=== PATIENT | male | born 1940 | race Caucasian/White ===

== ENCOUNTER 2017-02-01 12:18 | Outpatient (CLI) | payer OTHER, BC ==
[~2017-02-01 12:18] MED LIST: ASPI81TA2 PO; DOCU-19 PO; GLIP5TAB13 PO; LEVE500T13 PO; LEVO50TA77 PO; LIP40 PO; METO25TA6 PO; NOR10 PO
[2017-02-01 12:46] LABS: BILIRUBIN,URINE NEGATIVE (NEGATIVE); CLARITY/URINE CLEAR (CLEAR); COLOR,URINE YELLOW (YELLOW); GLUCOSE,URINE NEGATIVE (NEGATIVE); KETONES,URINE NEGATIVE (NEGATIVE); LEUKOCYTE ESTERASE ,URINE NEGATIVE (NEGATIVE); NITRITE, URINE NEGATIVE (NEGATIVE); PROTEIN URINE NEGATIVE (NEGATIVE); UROBILINOGEN,URINE 0.2 (0.2-1.0)
[2017-02-01 12:51] LABS: BLOOD, URINE TRACE (NEGATIVE)
[2017-02-01 13:00] LABS: BACTERIA,URINE RARE /HPF (None Seen); RBC,URINE 0-3 /HPF (0-3); WBC,URINE 0-3 /HPF (0-3)
== END 2017-02-01 19:17 | disposition home or self-care (01) ==
LOC: SLB 12:18
PROVIDERS: ATTEND Internal Medicine
DX: N39.0 Urinary tract infection, site not specified (principal)
CPT/HCPCS: 81000-TC

== ENCOUNTER 2017-08-30 11:21 | Outpatient (CLI) | payer OTHER, BC | END 2017-08-30 19:40 | disposition home or self-care (01) | LOC: SRD 11:21 | PROVIDERS: ATTEND Internal Medicine | DX: J18.9 Pneumonia, unspecified organism (principal); R05 Cough | CPT/HCPCS: 71046-TC ==

== ENCOUNTER 2018-09-21 09:23 | Inpatient (IN) | payer BC, OTHER ==
[~2018-09-21] VITALS: Ht 165.1 cm; Wt 72.6 kg
[~2018-09-21 09:23] MED LIST changes: +ASPI-1155 PO; -ASPI81TA2 PO; -LEVE500T13 PO; +LEVE500T9 PO; -LEVO50TA77 PO; +SYN50 PO
[2018-09-21 09:25] VITALS: BP_SYST 129
[2018-09-21] MEDS ORDERED: NACL 0.9% 1,000 ML IV ONE (11:15)
[2018-09-21 12:25] LABS: BASOPHILS # (AUTO) 0.1 K/uL (0.0-0.2); BASOPHILS % (AUTO) 0.7 % (0.0-2.0); EOSINOPHILS # (AUTO) 0.1 K/uL (0.0-0.4); EOSINOPHILS % (AUTO) 0.7 % (0.0-4.0); MONOCYTES # (AUTO) 0.7 K/uL (0.0-1.0)
[2018-09-21 12:32] LABS: HEMOGLOBIN 14.7 g/dL (14.0-18.0); LYMPHOCYTES # (AUTO) 1.2 K/uL (1.0-5.5); LYMPHOCYTES % (AUTO) 13.5 % (20.5-51.5); MEAN CORPUSCULAR HEMOGLOBIN 22 pg (27-31); MEAN CORPUSCULAR HGB CONC 31 % (32-36); MEAN CORPUSCULAR VOLUME 71 fL (79.0-98.0); NEUTROPHILS # (AUTO) 7.1 K/uL (1.8-7.7); NEUTROPHILS % (AUTO) 77.1 % (40.0-70.0); PLATELET COUNT (AUTO) 241 K/uL (130-430); RED BLOOD CELL COUNT(AUTO) 6.61 MIL/uL (4.2-6.2); RED CELL DISTRIBUTION WIDTH 14.2 % (9.0-15.0); WHITE BLOOD COUNT (AUTO) 9.2 K/uL (4.8-10.8)
[2018-09-21 12:33] LABS: ANION GAP 8 (5-15); CHLORIDE 105 mmol/L (98-107); CREATININE 1.24 mg/dL (0.55-1.30); GLUCOSE 124 mg/dL (70-99); SODIUM SERUM 141 mmol/L (136-145); UREA NITROGEN, BLOOD 19 mg/dL (8-21)
[2018-09-21] MEDS ORDERED: POTASSIUM CHLORIDE 20 MEQ TAB.PRT.SR PO ONE ×2 (12:45→16:00)
[2018-09-21 12:48] LABS: ALANINE AMINOTRANSFERASE 34 U/L (12-78); ALBUMIN 3.7 g/dL (3.4-4.8); ASPARTATE AMINOTRANSFERASE 21 U/L (10-37); FREE T4 (FREE THYROXINE) 1.1 ng/dL (0.6-1.6); THYROID STIMULATING HORMONE 0.97 uIu/mL (0.34-4.82); TOTAL BILIRUBIN 0.4 mg/dL (0.0-1.0)
[2018-09-21 13:21] LABS: POTASSIUM 2.9 mmol/L (3.5-5.1)
[2018-09-21 14:04] VITALS: BP_SYST 162
[2018-09-21 14:26] VITALS: BP_SYST 144
[2018-09-21] MEDS ORDERED: VITD2000 PO (14:44)
[2018-09-21] MEDS ORDERED: LAM25 PO (14:44)
[2018-09-21] MEDS ORDERED: LOSA100T3 PO (14:44)
[2018-09-21] MEDS ORDERED: PYRI50CA PO (14:44)
[2018-09-21] MEDS ORDERED: HYDR-4038 PO (14:44)
[2018-09-21] MEDS ORDERED: ASCO500T20 PO (14:44)
[2018-09-21] MEDS ORDERED: NIFE60TA83 PO (14:44)
[2018-09-21] MEDS ORDERED: hydrALAZINE HCL 25 MG TABLET PO PRN (15:30)
[2018-09-21] MEDS ORDERED: ASCORBIC ACID 500 MG TABLET PO ONE (15:45)
[2018-09-21] MEDS ORDERED: INSULIN REGULAR, HUMAN 100 UNITS/ML, 10 ML VIAL (novoLIN R) SUBCUT PRN (15:45)
[2018-09-21] MEDS ORDERED: DEXTROSE 50% JECT 50 ML DISP.SYRIN IVP PRN (15:45)
[2018-09-21] MEDS ORDERED: ATORVASTATIN 20 MG TABLET PO ONE (15:45)
[2018-09-21] MEDS ORDERED: CHOLECALCIFEROL (VITAMIN D3) 2,000 UNIT TABLET PO ONE (15:45)
[2018-09-21 16:00] VITALS: BP_SYST 133
[2018-09-21] MEDS ORDERED: METOPROLOL TARTRATE 25 MG TABLET PO ONE (16:00)
[2018-09-21] MEDS ORDERED: LamoTRIgine 25 MG TABLET PO ONE (16:00)
[2018-09-21] MEDS ORDERED: TEMAZEPAM 15 MG CAPSULE PO PRN (16:45)
[2018-09-21] MEDS ORDERED: ASPIRIN 81 MG TAB.CHEW PO ONE (20:15)
[2018-09-21 20:26] VITALS: BP_SYST 153
[2018-09-21] MEDS: POTASSIUM CHLORIDE 20 MEQ TAB.PRT.SR PO SCH (20:29)
[2018-09-21] MEDS: DOCUSATE SODIUM 100 MG CAPSULE PO SCH (20:29)
[2018-09-21] MEDS: levETIRAcetam 500 MG TABLET PO SCH (20:30)
[2018-09-21] MEDS: METOPROLOL TARTRATE 25 MG TABLET PO SCH (20:31)
[2018-09-21] MEDS: ENOXAPARIN SODIUM 80 MG/0.8 ML SYRINGE SUBCUT SCH (20:46)
[2018-09-21] MEDS ORDERED: ENOXAPARIN SODIUM 60 MG/0.6 ML SYRINGE SUBCUT SCH (21:00)
[2018-09-21] MEDS ORDERED: METOPROLOL TARTRATE 12.5 MG PO SCH (21:00)
[2018-09-21 23:51] VITALS: BP_SYST 153
[2018-09-22] MEDS: LEVOTHYROXINE SODIUM 0.05 MG TABLET PO SCH (06:23)
[2018-09-22 07:34] LABS: ANION GAP 12 (5-15); CALCIUM 8.8 mg/dL (8.4-11.0); CHLORIDE 102 mmol/L (98-107); CREATININE 1.04 mg/dL (0.55-1.30); GLUCOSE 123 mg/dL (70-99); POTASSIUM 3.6 mmol/L (3.5-5.1); SODIUM SERUM 139 mmol/L (136-145); UREA NITROGEN, BLOOD 15 mg/dL (8-21)
[2018-09-22 07:38] LABS: BASOPHILS % (AUTO) 0.4 % (0.0-2.0); EOSINOPHILS # (AUTO) 0.1 K/uL (0.0-0.4); EOSINOPHILS % (AUTO) 1.2 % (0.0-4.0); HEMATOCRIT 46.6 % (36-54); HEMOGLOBIN 14.7 g/dL (14.0-18.0); LYMPHOCYTES # (AUTO) 1.7 K/uL (1.0-5.5); LYMPHOCYTES % (AUTO) 19.1 % (20.5-51.5); MEAN CORPUSCULAR HEMOGLOBIN 23 pg (27-31); MEAN CORPUSCULAR HGB CONC 32 % (32-36); MEAN CORPUSCULAR VOLUME 72 fL (79.0-98.0); MONOCYTES # (AUTO) 0.5 K/uL (0.0-1.0); MONOCYTES % (AUTO) 6.2 % (1.7-9.3); NEUTROPHILS # (AUTO) 6.4 K/uL (1.8-7.7); NEUTROPHILS % (AUTO) 73.1 % (40.0-70.0); RED BLOOD CELL COUNT(AUTO) 6.52 MIL/uL (4.2-6.2); RED CELL DISTRIBUTION WIDTH 13.9 % (9.0-15.0); WHITE BLOOD COUNT (AUTO) 8.7 K/uL (4.8-10.8)
[2018-09-22 08:00] VITALS: BP_SYST 154
[2018-09-22] MEDS: ASCORBIC ACID 500 MG TABLET PO SCH (08:26)
[2018-09-22] MEDS: PYRIDOXINE HCL 50 MG TABLET PO SCH (08:26)
[2018-09-22] MEDS: LamoTRIgine 25 MG TABLET PO SCH (08:27)
[2018-09-22] MEDS: ATORVASTATIN 20 MG TABLET PO SCH (08:27)
[2018-09-22] MEDS: POTASSIUM CHLORIDE 20 MEQ TAB.PRT.SR PO SCH ×2 (08:27→20:34)
[2018-09-22] MEDS: NIFEDIPINE 60 MG TABLET.SA (PROCARDIA XL 60 MG) PO SCH (08:28)
[2018-09-22] MEDS: LOSARTAN POTASSIUM 50 MG TABLET (COZAAR) PO SCH (08:28)
[2018-09-22] MEDS: METOPROLOL TARTRATE 25 MG TABLET PO SCH ×2 (08:28→20:35)
[2018-09-22] MEDS: DOCUSATE SODIUM 100 MG CAPSULE PO SCH ×2 (08:28→20:34)
[2018-09-22] MEDS: CHOLECALCIFEROL (VITAMIN D3) 2,000 UNIT TABLET PO SCH (08:29)
[2018-09-22] MEDS: ENOXAPARIN SODIUM 80 MG/0.8 ML SYRINGE SUBCUT SCH ×2 (08:30→20:37)
[2018-09-22 08:43] LABS: PLATELET COUNT (AUTO) 229 K/uL (130-430)
[2018-09-22] MEDS ORDERED: levETIRAcetam 500 MG TABLET PO SCH (09:00)
[2018-09-22] MEDS ORDERED: ASPIRIN 81 MG TAB.CHEW PO SCH (09:00)
[2018-09-22 12:03] VITALS: BP_SYST 149
[2018-09-22 16:16] VITALS: BP_SYST 122
[2018-09-22 20:30] VITALS: BP_SYST 123
[2018-09-22] MEDS: levETIRAcetam 500 MG TABLET PO SCH (20:36)
[2018-09-23 00:45] VITALS: BP_SYST 110
[2018-09-23 03:40] VITALS: BP_SYST 102
[2018-09-23] MEDS: LEVOTHYROXINE SODIUM 0.05 MG TABLET PO SCH (06:14)
[2018-09-23 06:16] VITALS: BP_SYST 158
[2018-09-23 06:49] LABS: EOSINOPHILS # (AUTO) 0.2 K/uL (0.0-0.4); LYMPHOCYTES # (AUTO) 1.9 K/uL (1.0-5.5); MONOCYTES # (AUTO) 0.6 K/uL (0.0-1.0); NEUTROPHILS # (AUTO) 6.1 K/uL (1.8-7.7)
[2018-09-23 07:03] LABS: ANION GAP 11 (5-15); CALCIUM 8.7 mg/dL (8.4-11.0); CHLORIDE 105 mmol/L (98-107); CREATININE 1.03 mg/dL (0.55-1.30); GLUCOSE 114 mg/dL (70-99); POTASSIUM 3.7 mmol/L (3.5-5.1); SODIUM SERUM 139 mmol/L (136-145); UREA NITROGEN, BLOOD 22 mg/dL (8-21)
[2018-09-23] MEDS: NIFEDIPINE 60 MG TABLET.SA (PROCARDIA XL 60 MG) PO SCH (07:07)
[2018-09-23 07:17] LABS: BASOPHILS % (AUTO) 0.4 % (0.0-2.0); EOSINOPHILS % (AUTO) 2.4 % (0.0-4.0); HEMATOCRIT 44.5 % (36-54); HEMOGLOBIN 13.9 g/dL (14.0-18.0); LYMPHOCYTES % (AUTO) 21.8 % (20.5-51.5); MEAN CORPUSCULAR HEMOGLOBIN 22 pg (27-31); MEAN CORPUSCULAR HGB CONC 31 % (32-36); MEAN CORPUSCULAR VOLUME 71 fL (79.0-98.0); MONOCYTES % (AUTO) 7.2 % (1.7-9.3); NEUTROPHILS % (AUTO) 68.2 % (40.0-70.0); RED BLOOD CELL COUNT(AUTO) 6.27 MIL/uL (4.2-6.2); RED CELL DISTRIBUTION WIDTH 14.1 % (9.0-15.0); WHITE BLOOD COUNT (AUTO) 8.8 K/uL (4.8-10.8)
[2018-09-23 08:32] LABS: PLATELET COUNT (AUTO) 221 K/uL (130-430)
[2018-09-23 08:35] VITALS: BP_SYST 160
[2018-09-23] MEDS: POTASSIUM CHLORIDE 20 MEQ TAB.PRT.SR PO SCH (08:37)
[2018-09-23] MEDS: ASCORBIC ACID 500 MG TABLET PO SCH (08:38)
[2018-09-23] MEDS: DOCUSATE SODIUM 100 MG CAPSULE PO SCH (08:38)
[2018-09-23] MEDS: ATORVASTATIN 20 MG TABLET PO SCH (08:38)
[2018-09-23] MEDS: CHOLECALCIFEROL (VITAMIN D3) 2,000 UNIT TABLET PO SCH (08:38)
[2018-09-23] MEDS: PYRIDOXINE HCL 50 MG TABLET PO SCH (08:38)
[2018-09-23] MEDS: LamoTRIgine 25 MG TABLET PO SCH (08:38)
[2018-09-23] MEDS: LOSARTAN POTASSIUM 50 MG TABLET (COZAAR) PO SCH (08:39)
[2018-09-23] MEDS: METOPROLOL TARTRATE 25 MG TABLET PO SCH (08:39)
[2018-09-23] MEDS: ENOXAPARIN SODIUM 80 MG/0.8 ML SYRINGE SUBCUT SCH (08:41)
[2018-09-23] MEDS ORDERED: ASPIRIN 81 MG TABLET(ECOTRIN) PO SCH (09:00)
[2018-09-23] MEDS ORDERED: ASPI-1153 PO (11:38)
[2018-09-23] MEDS ORDERED: POTA20TA83 PO (11:38)
[2018-09-23 11:59] VITALS: BP_SYST 136
[2018-09-23 12:19] VITALS: BP_SYST 136
== END 2018-09-23 12:36 | disposition home or self-care (01) | DRG 641 ==
LOC: SED 09:23 → STU 12:51
PROVIDERS: ADMIT Internal Medicine; ATTEND Internal Medicine
DX: E87.6 Hypokalemia (principal); I24.8 Other forms of acute ischemic heart disease; R00.0 Tachycardia, unspecified; E11.9 Type 2 diabetes mellitus without complications; I10 Essential (primary) hypertension; K21.9 Gastro-esophageal reflux disease without esophagitis; E78.5 Hyperlipidemia, unspecified; E03.9 Hypothyroidism, unspecified; I48.0 Paroxysmal atrial fibrillation; G40.909 Epilepsy, unspecified, not intractable, without status epilepticus; T46.5X5A Adverse effect of other antihypertensive drugs, initial encounter; Y92.89 Other specified places as the place of occurrence of the external cause; Z88.2 Allergy status to sulfonamides; Z79.899 Other long term (current) drug therapy; Z79.82 Long term (current) use of aspirin
CPT/HCPCS: 36415; 71045; 80048; 80053; 82962; 83735-TC; 83880; 84439; 84443-TC; 84484; 85025; 93005; 93306; 96360; 99285; G0378; J1650; J1815

== ENCOUNTER 2018-11-26 08:39 | Outpatient (CLI) | payer BC ==
[~2018-11-26 08:39] MED LIST changes: +ASCO500T20 PO; +ASPI-1153 PO; -ASPI-1155 PO; +LAM25 PO; +LOSA100T3 PO; +NIFE60TA83 PO; -NOR10 PO; +POTA20TA83 PO; +PYRI50CA PO; +VITD2000 PO
== END 2018-11-26 21:24 | disposition home or self-care (01) ==
LOC: SUS 08:39
PROVIDERS: ATTEND Internal Medicine
DX: K80.20 Calculus of gallbladder without cholecystitis without obstruction (principal)
CPT/HCPCS: 76700-TC

== ENCOUNTER 2019-07-10 08:10 | Outpatient (CLI) | payer BC ==
[~2019-07-10 08:10] MED LIST changes: +ANT30 PO; -ASPI-1153 PO; +DEXL30CA3 PO
== END 2019-07-11 20:13 | disposition home or self-care (01) ==
LOC: SUS 08:10
PROVIDERS: ATTEND Internal Medicine
DX: I12.9 Hypertensive chronic kidney disease with stage 1 through stage 4 chronic kidney disease, or unspecified chronic kidney disease (principal); E11.22 Type 2 diabetes mellitus with diabetic chronic kidney disease; N18.3 Chronic kidney disease, stage 3 (moderate)
CPT/HCPCS: 76770

== ENCOUNTER 2021-10-23 10:40 | Outpatient (CLI) | payer BC ==
[~2021-10-23 10:40] MED LIST changes: +POTA-197 PO; -POTA20TA83 PO
== END 2021-10-23 21:08 | disposition home or self-care (01) ==
LOC: SRD 10:40
PROVIDERS: ATTEND Internal Medicine
DX: R91.8 Other nonspecific abnormal finding of lung field (principal); I51.7 Cardiomegaly; I70.90 Unspecified atherosclerosis; R63.4 Abnormal weight loss
CPT/HCPCS: 71046-TC

== ENCOUNTER 2022-02-13 08:26 | Outpatient (CLI) | payer BC ==
[2022-02-13] MEDS ORDERED: BARIUM SULFATE 135 ML SUSP.RECON (E-Z-HD) PO ONE (08:48)
== END 2022-02-13 21:05 | disposition home or self-care (01) ==
LOC: SRD 08:26
PROVIDERS: ATTEND Internal Medicine Gastroenterology
DX: R13.10 Dysphagia, unspecified (principal)
CPT/HCPCS: 74220-TC

== ENCOUNTER 2022-03-02 09:51 | Outpatient (CLI) | payer BC | END 2022-03-02 21:05 | disposition home or self-care (01) | LOC: SCT 09:51 | PROVIDERS: ATTEND Internal Medicine | DX: I25.10 Atherosclerotic heart disease of native coronary artery without angina pectoris (principal); I51.7 Cardiomegaly; K80.20 Calculus of gallbladder without cholecystitis without obstruction; I65.23 Occlusion and stenosis of bilateral carotid arteries; D13.0 Benign neoplasm of esophagus; D38.1 Neoplasm of uncertain behavior of trachea, bronchus and lung | CPT/HCPCS: 70490; 71250-TC; 76376 ==

== ENCOUNTER 2024-01-17 09:14 | Outpatient (CLI) | payer BC ==
[~2024-01-17 09:14] MED LIST changes: -GLIP5TAB13 PO; +GLIP5TAB23 PO; +LOSA-415 PO; -LOSA100T3 PO
== END 2024-01-17 18:00 | disposition home or self-care (01) ==
LOC: SUS 09:14
PROVIDERS: ATTEND Internal Medicine
DX: N28.1 Cyst of kidney, acquired (principal); N17.9 Acute kidney failure, unspecified; N18.9 Chronic kidney disease, unspecified
CPT/HCPCS: 76770